=== PATIENT | male | born 1985 | race African-American/Black ===

== ENCOUNTER 2016-05-25 14:06 | Emergency (ER) | payer SELFPAY ==
[2016-05-25 14:23] VITALS: BP 138/78
--- NOTE | 2016-05-25 14:23 | ER Document Report ---
ED Medical Screen (RME) - General Stated Complaint: SORE THROAT Notes: Sore throat for 3 days I greeted and performed a rapid initial assessment of this patient. Comprehensive ED assessment and evaluation of the patient, analysis of test results and completion of the medical decision making process will be conducted by additional ED providers. TRAVEL OUTSIDE OF THE [place] IN LAST 30 DAYS: No - Related Data Allergies/Adverse Reactions: No Known Allergies Allergy (Unverified 05/23/14 11:53) Physical Exam - Vital signs Vitals: Temp Pulse Resp BP Pulse Ox 98.1 F 85 20 138/78 H 100 05/25/16 14:20 05/25/16 14:20 05/25/16 14:20 05/25/16 14:20 05/25/16 14:20 Course - Vital Signs Vital signs: Temp Pulse Resp BP Pulse Ox 98.1 F 85 20 138/78 H 100 05/25/16 14:20 05/25/16 14:20 05/25/16 14:20 05/25/16 14:20 05/25/16 14:20
--- NOTE | 2016-05-25 14:53 | ER Document Report ---
ED ENT - General Chief Complaint: Sore Throat Stated Complaint: SORE THROAT Time seen by provider: 14:30 Mode of Arrival: Ambulatory Information source: Patient, [facility] Records Notes: This 31-year-old male patient comes emergency room complaining of a three-day history of fever and sore throat. There is also a clear productive cough. He reports a temperature up to 101 and has been taking Advil for this. There is no nausea vomiting diarrhea. There is no shortness of breath. TRAVEL OUTSIDE OF THE [place] IN LAST 30 DAYS: No - Related Data Allergies/Adverse Reactions: No Known Allergies Allergy (Verified 05/25/16 14:23) Past Medical History - General Information source: Patient, [facility] Records - Social History Smoking Status: Never Smoker Cigarette use (# per day): No Chew tobacco use (# tins/day): No Smoking Education Provided: No Frequency of alcohol use: None Drug Abuse: None Lives with: Family Family History: Reviewed & Not Pertinent Patient has suicidal ideation: No Patient has homicidal ideation: No - Medical History Medical History: Negative Renal/ Medical History: Denies: Hx Peritoneal Dialysis Surgical Hx: Negative Review of Systems - Review of Systems Constitutional: See HPI, Fever EENT: Throat pain Cardiovascular: No symptoms reported Respiratory: Cough, Sputum - Clear sputum. denies: Short of breath Gastrointestinal: No symptoms reported Genitourinary: No symptoms reported Musculoskeletal: No symptoms reported Skin: No symptoms reported Hematologic/Lymphatic: No symptoms reported Neurological/Psychological: No symptoms reported Physical Exam - Vital signs Vitals: Temp Pulse Resp BP Pulse Ox 98.1 F 85 20 138/78 H 100 05/25/16 14:20 05/25/16 14:20 05/25/16 14:20 05/25/16 14:20 05/25/16 14:20 Interpretation: Normal - General General appearance: Appears well, Alert In distress: None - HEENT Head: Normocephalic, Atraumatic Eyes: Normal Pupils: PERRL Pharynx: Erythema, Exudate - Tonsils are both quite reddened with patchy exudate. They're not particularly hypertrophied. Neck: Other - Tender anterior cervical nodes bilaterally. - Respiratory Respiratory status: No respiratory distress Breath sounds: Normal - Cardiovascular Rhythm: Regular Heart sounds: Normal auscultation Murmur: No - Abdominal Inspection: Normal - Back Back: Normal - Extremities General upper extremity: Normal inspection General lower extremity: Normal inspection - Neurological Neuro grossly intact: Yes - Psychological Associated symptoms: Normal affect, Normal mood - Skin Skin Temperature: Warm Skin Moisture: Dry Skin Color: Normal Course - Vital Signs Vital signs: Temp Pulse Resp BP Pulse Ox 98.1 F 85 20 138/78 H 100 05/25/16 14:20 05/25/16 14:20 05/25/16 14:20 05/25/16 14:20 05/25/16 14:20 Discharge - Discharge Clinical Impression: Exudative tonsillitis Fever Qualifiers: Fever type: unspecified Qualified Code(s): R50.9 - Fever, unspecified Condition: Stable Disposition: HOME, SELF-CARE Additional Instructions: Tonsillitis: Tonsillitis is infection of the tonsils. Symptoms include sore throat, difficulty swallowing, fever and aches, and tender lumps under the angle of the jaw. Tonsillitis can be caused by bacteria or viruses. Viral tonsillitis must get better on its own. Antibiotics don't help. The doctor may test for mononucleosis if symptoms last many days. We can only treat the symptoms. Bacterial tonsillitis is treated with antibiotics. It may take a few days before improvement occurs. It's important to take all the antibiotics. Take acetaminophen or ibuprofen for pain and fever. Sip frequent clear liquids, or use popsicles or ice chips. Anesthetic sprays or lozenges may help a little (the pain of tonsillitis is deep, and isn't helped much by numbing the surface). Make sure the air in the room is not too dry. Avoid using decongestants or antihistamines. Tonsillectomy may be necessary if you have several episodes of tonsillitis within a couple of years, or if there are complications from your tonsillitis. It's usually not needed. Call the doctor if there is no improvement in two days, or if you have difficulty breathing, increasing throat pain, high fever, rash, or frequent vomiting. TAKE THE MEDICATION PRESCRIBED. DRINK PLENTY OF FLUIDS. REST. TAKE TYLENOL AND MOTRIN FOR PAIN AND FEVER. FOLLOW UP WITH YOUR DOCTOR IF NOT IMPROVING. Prescriptions: Cephalexin Monohydrate [Keflex 500 mg Capsule] 500 mg PO BID #20 capsule Prednisone 20 mg PO BID #6 tablet Forms: Return to Work Scribe Attestation: 05/25/16 16:08 I personally performed the services described in the documentation, reviewed and edited the documentation which was dictated to the scribe in my presence, and it accurately records my words and actions.
== END 2016-05-25 16:19 | disposition home or self-care (01) ==
LOC: ER 14:06
DX: J03.90 Acute tonsillitis, unspecified (principal); R50.9 Fever, unspecified; R05 Cough
CPT/HCPCS: 36415; 86308; 87070; 87077; 87880; 99283